=== PATIENT | male | born 1960 | race Caucasian/White ===

== ENCOUNTER 2016-12-14 08:22 | Emergency (ER) | payer OTHER ==
--- NOTE | ~2016-12-14 | ER ---
PATIENT'S NAME: MERCEDES CAPUTO [facility] AGE: 56 Y [address] ROOM: [place], [place] [address] LOCATION: [facility] ADMIT DATE: 12/14/2016 ER/Outpatient Report DISCHARGE DATE: 12/14/2016 FAMILY PHYSICIAN: Ismael Santamaria MD ATTENDING PHYSICIAN: Flakito Lockhart CHIEF COMPLAINT: Left side and back pain. HISTORY OF PRESENT ILLNESS: The patient was lifting some chemicals overhead yesterday to dump into a holding tank when he felt a twinge of pain in his back. It is located on the left side. It radiates slightly forward and kind of down. He denies any other symptoms at this time. He has been taking ibuprofen to help relieve it. He was unable to sleep well last night and came in for evaluation this morning because of the pain. He has had some nausea associated with this as well. PAST MEDICAL HISTORY: Documented in the record and reviewed by me. SOCIAL HISTORY: Documented in the record and reviewed by me. MEDICATIONS: Documented in the record and reviewed by me. ALLERGIES: DOCUMENTED IN THE RECORD AND REVIEWED BY ME. REVIEW OF SYSTEMS: All systems were reviewed and negative except as noted in the HPI. PHYSICAL EXAMINATION: VITAL SIGNS: Blood pressure 191/109, pulse 77, respiratory rate 18, temperature 98.8, and SpO2 is 97% on room air. Pain is rated at 15/10. GENERAL: Age-appropriate male in obvious discomfort, moderate, sitting upright on the exam table. No respiratory distress. NEUROLOGIC: Awake and alert. GCS 15. No focal deficits. No asymmetry. HEENT: Normocephalic and atraumatic. Eyes; PERRL. Oropharynx is clear. NECK: Supple. Trachea is midline. CHEST: Heart is regular rate and rhythm with no murmurs. LUNGS: Clear to auscultation bilaterally. No rhonchi, wheezes, or rales. ABDOMEN: Soft. It is unremarkable. BACK: Normal to inspection and palpation along the spine. There is left- sided paraspinal tenderness and tenderness over the SI joint. No CVA PATIENT'S NAME: MERCEDES CAPUTO [facility] AGE: 56 Y [address] ROOM: [place], [place] [address] LOCATION: [facility] ADMIT DATE: 12/14/2016 ER/Outpatient Report DISCHARGE DATE: 12/14/2016 FAMILY PHYSICIAN: Ismael Santamaria MD ATTENDING PHYSICIAN: Flakito Lockhart tenderness. No skin changes. EXTREMITIES: Warm and well perfused. No asymmetry. No weakness. SKIN: Otherwise, intact. LABORATORY DATA AND IMAGING STUDIES: Labs and X-rays: CT of the abdomen reveals diverticulosis and an enlarged prostate, but no acute other intra-abdominal findings, known renal stones. Urinalysis is notable for 150 blood, and micro does have some blood on it. CMS without appreciable electrolyte abnormality other than mildly low potassium at 3.0. Creatinine is 1.1. GFR is greater than 60. LFTs are grossly unremarkable. No elevation of bilirubin, alkaline phosphatase is 140. CBC: White count is slightly elevated at 12.2, hemoglobin 17.3. Urinalysis with no other acute findings. IMPRESSION: Acute musculoskeletal back pain without neurological compromise. EMERGENCY DEPARTMENT COURSE: The patient was seen and evaluated. Based on his overall discomfort and type of pain with some hematuria, there was concern for possible ureterolithiasis. This was excluded by CT scan. I am unsure as to the source of his hematuria. A CT scan did incidentally diagnosed diverticulosis and prostatic hypertrophy. He will need further evaluation for this issue by his primary care physician. His symptoms were treated in the ER with Zofran and Toradol with some improvement. Recommend methocarbamol for spasm in the future. Supplement with Tylenol as needed. Heat and ice as needed. Tolerate activity as much as possible. Follow up with PCP in 4 to 5 days, if not improved. Return immediately if worsening neurological symptoms such as weakness or changes in bowel or bladder function. MD HERIBERTO KNIGHT/lailal /[id number] d: 12/15/16 0006 t: 12/17/16 0718, OUTPATIENT REPORT
[~2016-12-14 08:22] MED LIST: ADVIL200 MG PO; DILAUDID 2MG(HYD2 MG PO; K-TAB 10MEQ10 MEQ PO; LISINOPRIL-HCT1 EAC2 PO; NON-ASPIRIN EX500 M1 PO; VALIUM5 MG PO; XARELTO10 MG PO
[2016-12-14 08:50] LABS: BILIRUBIN URINE NEGATIVE (NEGATIVE); BLOOD URINE 150 /UL (NEGATIVE); COLOR URINE YELLOW (YELLOW); GLUCOSE URINE 50 mg/dL (NEGATIVE); KETONE URINE 150 mg/dL (NEGATIVE); LEUKOCYTES URINE 25 /UL (NEGATIVE); NITRITE URINE NEGATIVE (NEGATIVE); PROTEIN URINE 100 mg/dL (NEGATIVE); TURBIDITY URINE CLEAR (CLEAR); UROBILINOGEN URINE 1 mg/dL (NORMAL)
[2016-12-14 08:56] LABS: BACTERIA URINE NEGATIVE (NEGATIVE); EPITHELIAL URINE RARE #/HPF (NEGATIVE); MUCUS URINE 1+ (NEGATIVE); WBC URINE 0-2 #/HPF (NEGATIVE)
[2016-12-14 08:59] LABS: BASOPHIL % 0.2 %; HEMATOCRIT 50.7 % (37.0-53.0); HEMOGLOBIN 17.3 g/dL (12.0-17.0); IMMATURE GRANULOCYTE % 0.2 %; LYMPHOCYTE # 1.3 K/uL (0.8-4.0); LYMPHOCYTE % 10.7 %; MCH 28.3 pg (27.0-34.0); MCHC 34.1 gm/dL (32.0-36.5); MCV 82.8 fl (83.0-98.0); MONOCYTE # 0.7 K/uL (0.0-1.0); MONOCYTE % 5.3 %; MPV 9.8 fl (9.4-12.4); NEUTROPHIL # (ANC) 10.2 K/uL (1.4-9.0); NEUTROPHIL % 83.6 %; NRBC % 0 /100WBC (0-0.00); PLATELET COUNT 347 K/uL (150-450); RBC 6.12 M/uL (4.00-6.00); RDW-CV 12.8 % (11.9-14.6); WBC 12.2 K/uL (4.0-11.0)
[2016-12-14 09:12] LABS: ALBUMIN 4.2 gm/dL (3.5-5.0); ALK PHOS 140 IU/L (33-138); ALT 47 IU/L (12-78); AST 28 IU/L (10-40); BLOOD UREA NITROGEN 20 mg/dL (6-24); CALCIUM 9.3 mg/dL (8.5-10.5); CHLORIDE 103 mMol/L (96-110); CO2 25 mMol/L (22-32); CREATININE 1.1 mg/dL (0.6-1.3); ESTIMATED GFR (MDRD EQUATION) > 60; SODIUM 138 mMol/L (135-145); TOTAL BILIRUBIN 1.5 mg/dL (0.0-1.5); TOTAL PROTEIN 8.7 g/dL (6.0-8.4)
== END 2016-12-14 09:28 | disposition disaster alternative care site (69) ==
LOC: GACC 08:22
PROVIDERS: Emergency Medicine
DX: M53.3 Sacrococcygeal disorders, not elsewhere classified (principal); N40.0 Benign prostatic hyperplasia without lower urinary tract symptoms; K57.90 Diverticulosis of intestine, part unspecified, without perforation or abscess without bleeding; I10 Essential (primary) hypertension; Z88.0 Allergy status to penicillin; Z79.899 Other long term (current) drug therapy; Z96.653 Presence of artificial knee joint, bilateral; Z98.890 Other specified postprocedural states
CPT/HCPCS: J1885